=== PATIENT | female | born 1960 | race African-American/Black ===

== ENCOUNTER 2021-06-17 15:46 | Outpatient (CLI) | payer MEDICARE, MEDICAID, SELFPAY ==
--- NOTE | ~2021-06-17 | MM_ITS ---
EXAMINATION: MM screening nancie BI w elaine HISTORY: Screening mammogram TECHNIQUE: Craniocaudal and mediolateral oblique 3-D tomosynthesis images were obtained and synthetic 2-D images were generated. CAD analysis was submitted and interpreted. COMPARISON: No prior mammogram is available for comparison at this institution. BREAST PARENCHYMAL COMPOSITION: There are scattered areas of fibroglandular density. FINDINGS: Surgically low-density a millimeter opacity is noted in the posterior outer mid right breas t, likely benign. Comparison with prior mammogram(s) reportedly performed at [facility] is recommended to document stability for at least 2 years. If stability for 2 years is not docume nted, then diagnostic right mammogram and targeted right breast ultrasound examination are recommende d. Otherwise there is no evidence of suspicious mass, calcification, or architectural distortion to sugg est malignancy in either breast. IMPRESSION: 1. 8 mm circumscribed opacity in the posterior outer mid right breast 2. Comparison with prior mammogram examinations is recommended; if not available or if this density i s stable for at least 2 years, then diagnostic right mammogram and targeted right breast ultrasound e xamination are recommended. BI-RADS Category 0: Incomplete: Needs additional imaging evaluation. Reviewed, dictated and finalized at location A. IMPRESSION: 1. 8 mm circumscribed opacity in the posterior outer mid right breast 2. Comparison with prior mammogram examinations is recommended; if not availabl e or if this density is stable for at least 2 years, then diagnostic right mamm ogram and targeted right breast ultrasound examination are recommended. BI-RADS Category 0: Incomplete: Needs additional imaging evaluation.
== END 2021-06-17 15:47 | disposition home or self-care (01) ==
LOC: ANHIMG 15:54
PROVIDERS: PCP Nurse Practitioner Family; Visit Provider Nurse Practitioner Family
DX: Z12.31 Encounter for screening mammogram for malignant neoplasm of breast (principal); R92.8 Other abnormal and inconclusive findings on diagnostic imaging of breast
CPT/HCPCS: 77063; 77067

== ENCOUNTER 2022-02-09 13:26 | Outpatient (CLI) | payer MEDICARE, MEDICAID, SELFPAY ==
--- NOTE | ~2022-02-09 | MM_ITS ---
EXAMINATION: MM diagnostic nancie BI w elaine HISTORY: Bilateral breast tenderness, itchiness TECHNIQUE: ML, MLO and CC 3-D tomosynthesis images of both breasts were performed and synthetic 2-D i mages were generated. CAD analysis was submitted and interpreted. COMPARISON: 06/17/2021, 01/06/2018, 10/28/2069 bilateral screening mammogram examinations BREAST PARENCHYMAL COMPOSITION: There are scattered areas of fibroglandular density. FINDINGS: Stable circumscribed 8 mm opacity in the outer mid right breast, not significantly changed since October 28, 2016, consistent with benign process. Stable circumscribed approximately 4.4 mm opacity in the posterior upper outer left breast, not signi ficantly changed since October 28, 2016, likely a benign intramammary lymph node. No suspicious mass or architectural distortion, malignant calcification, skin thickening or retractio n or significant new or developing density is detected. IMPRESSION: 1. Benign findings; no mammographic evidence of malignancy or significant change since October 28 017 2. Routine mammographic screening is recommended. BI-RADS Category 2: Benign finding(s). Reviewed, dictated and finalized at location A. IMPRESSION: 1. Benign findings; no mammographic evidence of malignancy or significant gutierrez e since October 28, 2016 2. Routine mammographic screening is recommended. BI-RADS Category 2: Benign finding(s).
== END 2022-02-09 13:27 | disposition home or self-care (01) ==
PROVIDERS: PCP Nurse Practitioner Family
DX: N64.4 Mastodynia (principal)
CPT/HCPCS: 77062; 77066; G0279

== ENCOUNTER 2023-04-28 10:36 | Outpatient (CLI) | payer MEDICARE, MEDICAID, SELFPAY ==
--- NOTE | ~2023-04-28 | MM_ITS ---
EXAMINATION: MM screening nancie BI w elaine HISTORY: Screening TECHNIQUE: Craniocaudal and mediolateral oblique 3-D tomosynthesis images were obtained and synthetic 2-D images were generated. CAD analysis was submitted and interpreted. COMPARISON: Comparison to multiple prior studies sequentially, with oldest reviewed study dated 10/28. BREAST PARENCHYMAL COMPOSITION: There are scattered areas of fibroglandular density. FINDINGS: There is no evidence of suspicious mass, calcification, or architectural distortion to sugg est malignancy in either breast. There has been no suspicious interval change. IMPRESSION: 1. No mammographic evidence of malignancy. 2. Recommend routine screening mammography in one year. BI-RADS Category 1: Negative Reviewed, dictated and finalized at location A.
== END 2023-04-28 10:37 | disposition home or self-care (01) ==
DX: Z12.31 Encounter for screening mammogram for malignant neoplasm of breast (principal)
CPT/HCPCS: 77063; 77067